=== PATIENT | female | born 1990 | race African-American/Black ===

== ENCOUNTER 2017-06-24 04:07 | Emergency (ER) | payer BC, MEDICAID ==
[~2017-06-24] VITALS: Ht 167.6 cm; Wt 119.0 kg
[2017-06-24] MEDS ORDERED: MORPHINE SULFATE 4 MG/ML CPJ (NOT FOR IM USE) IV STA (06:18)
[2017-06-24] MEDS ORDERED: ONDANSETRON HCL 4MG/2ML VIAL IV STA (06:18)
[2017-06-24] MEDS ORDERED: SODIUM CHLORIDE 0.9% 1,000 ML IV ONE (06:18)
[2017-06-24] MEDS ORDERED: METHYLPREDNISOLONE SOD SUCC 125 MG/2 ML VIAL IV STA (06:23)
[2017-06-24] MEDS ORDERED: ALBUTEROL (0.083%) 2.5MG/3ML NEB HHN STA (06:23)
[2017-06-24 06:35] LABS: BASOPHILS % 0.3 % (0.0-2.0); HEMATOCRIT. 38.3 % (36.0-48.0); HEMOGLOBIN. 12.5 g/dL (12.0-16.0); LYMPHOCYTES % 12.3 % (20.0-50.0); MEAN CORPUSCULAR HEMOGLOBIN 27.3 pg (28.0-32.0); MEAN CORPUSCULAR VOLUME 83.6 fL (81.0-99.0); MONOCYTES % 3.9 % (2.0-8.0); NEUTROPHILS % 82.5 % (40.0-76.0); PLATELET 212 x1000/uL (130-400); RED BLOOD CELL COUNT 4.57 mill/uL (4.2-5.4); RED CELL DISTRIBUTION WIDTH 14.4 % (11.6-14.6)
[2017-06-24 06:42] LABS: CHLORIDE 106 mEq/L (98-107)
[2017-06-24 06:43] LABS: D-DIMER 0.58 mg/L FEU (<0.50); INR 1.1; PROTHROMBIN TIME 11.5 sec (9.4-11.6)
[2017-06-24 06:47] LABS: HCG SCREEN NEGATIVE
[2017-06-24 06:48] LABS: CREATINE KINASE 134 IU/L (26-192); CREATINE KINASE MB FRACTION 0.7 ng/mL (0.5-3.6); TROPONIN I < 0.02 ng/mL (0.00-0.04)
[2017-06-24] MEDS ORDERED: IOHEXOL-350 100 ML BOTTLE ONE (08:44)
[2017-06-24] MEDS ORDERED: SODIUM CHLORIDE 0.9% 10ML VIAL ONE (08:44)
[2017-06-24 11:30] LABS: CLARITY URINE CLEAR (CLEAR); COLOR URINE YELLOW (YELLOW); KETONES URINE NEGATIVE (NEGATIVE); LEUKOCYTE ESTERASE URINE NEGATIVE (NEGATIVE); NITRITE URINE NEGATIVE (NEGATIVE); OCCULT BLOOD URINE NEGATIVE (NEGATIVE); PH URINE 5.5 (4.5-8.0); PROTEIN URINE NEGATIVE (NEGATIVE); SPECIFIC GRAVITY URINE 1.014 (1.005-1.030); UROBILINOGEN URINE 0.2 E.U./dL (0.2-1.0)
[2017-06-24] MEDS ORDERED: PREDNISONE 20MG TABLET PO ONE (11:45)
[2017-06-24 13:05] VITALS: BP 133/72
== END 2017-06-24 13:12 | disposition home or self-care (01) ==
LOC: ER 04:07
DX: J45.901 Unspecified asthma with (acute) exacerbation (principal); G35 Multiple sclerosis; R51 Headache; R07.9 Chest pain, unspecified; Z86.718 Personal history of other venous thrombosis and embolism; Z86.711 Personal history of pulmonary embolism
CPT/HCPCS: 36415; 71045; 71275; 80053; 81003; 82550; 82553; 83605; 83690; 83880; 84484; 84703; 85025; 85379; 85610; 85730; 87040; 87086; 87804; 93005; 93970; 94640; 96361; 96374; 96375; 99285; A4216; J2270; J2405; J2930; J7030; J7512; J7611; Q9967; Z7610

== ENCOUNTER 2017-09-16 00:03 | Emergency (ER) | payer BC, MEDICAID ==
[~2017-09-16] VITALS: Ht 167.6 cm; Wt 148.0 kg
[2017-09-16] MEDS ORDERED: ACETAMINOPHEN WITH CODEINE 300/30MG TABLET PO ONE (02:15)
[2017-09-16 04:49] VITALS: BP 125/67
== END 2017-09-16 04:55 | disposition home or self-care (01) ==
LOC: ER 00:03
DX: M25.562 Pain in left knee (principal); J45.909 Unspecified asthma, uncomplicated; G35 Multiple sclerosis
CPT/HCPCS: 73562; 81025; 93971; 99284

== ENCOUNTER 2018-03-23 15:19 | Emergency (ER) | payer BC, MEDICAID ==
[~2018-03-23] VITALS: Ht 167.6 cm; Wt 123.0 kg
[2018-03-23 15:24] VITALS: BP 117/64
== END 2018-03-24 09:57 | disposition left against medical advice (07) ==
LOC: ER 03-24 08:41
DX: Z53.21 Procedure and treatment not carried out due to patient leaving prior to being seen by health care provider (principal)

== ENCOUNTER 2019-10-13 08:29 | Emergency (ER) | payer BC, MEDICAID ==
[~2019-10-13] VITALS: Ht 167.6 cm; Wt 125.0 kg
[2019-10-13] MEDS ORDERED: GABA-529 PO (08:44)
[2019-10-13] MEDS ORDERED: KETOROLAC 60MG/2ML VIAL IM STA (09:26)
[2019-10-13] MEDS ORDERED: METOCLOPRAMIDE HCL 10MG/2ML VIAL IM STA (09:26)
[2019-10-13 09:52] LABS: CLARITY URINE CLEAR (CLEAR); COLOR URINE YELLOW (YELLOW); KETONES URINE NEGATIVE (NEGATIVE); LEUKOCYTE ESTERASE URINE NEGATIVE (NEGATIVE); NITRITE URINE NEGATIVE (NEGATIVE); OCCULT BLOOD URINE 1+ (NEGATIVE); PROTEIN URINE NEGATIVE (NEGATIVE); SPECIFIC GRAVITY URINE 1.018 (1.005-1.030); UROBILINOGEN URINE 0.2 E.U./dL (0.2-1.0)
[2019-10-13 10:36] LABS: HEMATOCRIT. 41.8 % (36.0-48.0); HEMOGLOBIN. 14.2 g/dL (12.0-16.0); MEAN CORPUSCULAR HEMOGLOBIN 28.9 pg (28.0-32.0); MEAN CORPUSCULAR VOLUME 85.2 fL (81.0-99.0); MEAN PLATELET VOLUME 9.8 fl (7.4-10.4); PLATELET 209 x1000/uL (130-400); RED CELL DISTRIBUTION WIDTH 14.6 % (11.6-14.6)
[2019-10-13 10:39] LABS: CHLORIDE 110 mEq/L (98-107)
[2019-10-13 11:14] LABS: PLATELET ESTIMATE NORMAL
[2019-10-13 13:02] VITALS: BP 101/40
== END 2019-10-13 13:07 | disposition home or self-care (01) ==
LOC: ER 09:24
DX: R51 Headache (principal); R05 Cough; J06.9 Acute upper respiratory infection, unspecified; Z98.890 Other specified postprocedural states
CPT/HCPCS: 36415; 80053; 81003; 81025; 85025; 96372; 99283; J1885; J2765

== ENCOUNTER 2021-01-12 08:32 | Emergency (ER) | payer BC, MEDICAID ==
[~2021-01-12] VITALS: Ht 167.6 cm; Wt 125.0 kg
[~2021-01-12 08:32] MED LIST: GABA-529 PO; IBUP-2029 MT; T3 PO
[2021-01-12] MEDS ORDERED: IBUPROFEN 800MG TABLET PO ONE (09:15)
[2021-01-12 10:04] LABS: CLARITY URINE CLOUDY (CLEAR); COLOR URINE YELLOW (YELLOW); KETONES URINE NEGATIVE (NEGATIVE); LEUKOCYTE ESTERASE URINE 3+ (NEGATIVE); NITRITE URINE NEGATIVE (NEGATIVE); OCCULT BLOOD URINE 2+ (NEGATIVE); PH URINE 5.5 (4.5-8.0); PROTEIN URINE 1+ (NEGATIVE); SPECIFIC GRAVITY URINE 1.013 (1.005-1.030); UROBILINOGEN URINE 0.2 E.U./dL (0.2-1.0)
[2021-01-12] MEDS ORDERED: IBUP-2030 MT (10:26)
[2021-01-12] MEDS ORDERED: AMOX1TAB16 MT (10:26)
[2021-01-12 10:37] VITALS: BP 119/69
== END 2021-01-12 10:39 | disposition home or self-care (01) ==
LOC: ER 08:32
DX: N39.0 Urinary tract infection, site not specified (principal); J45.909 Unspecified asthma, uncomplicated; Z98.890 Other specified postprocedural states
CPT/HCPCS: 81003; 81025; 87077; 87186; 99283

== ENCOUNTER 2022-03-10 10:08 | Emergency (ER) | payer MEDICAID ==
[~2022-03-10] VITALS: Ht 167.6 cm; Wt 123.0 kg
[~2022-03-10 10:08] MED LIST changes: +AMOX1TAB16 MT; +IBUP-2030 MT
[2022-03-10 10:35] VITALS: BP 149/82
[2022-03-10] MEDS ORDERED: HYDROCODONE/ACETAMINOPHEN 5/325MG TABLET PO ONE (11:15)
[2022-03-10] MEDS ORDERED: NAPR-681 MT (13:16)
== END 2022-03-10 13:56 | disposition home or self-care (01) ==
LOC: ER 10:08
DX: M25.572 Pain in left ankle and joints of left foot (principal); J45.909 Unspecified asthma, uncomplicated; Z86.711 Personal history of pulmonary embolism; Z98.890 Other specified postprocedural states; Z79.01 Long term (current) use of anticoagulants; X50.1XXA Overexertion from prolonged static or awkward postures, initial encounter; Y93.89 Activity, other specified; Y92.018 Other place in single-family (private) house as the place of occurrence of the external cause
CPT/HCPCS: 29515; 73610; 99283; Z7610

== ENCOUNTER 2023-01-02 16:09 | Emergency (ER) | payer BC, OTHER ==
[~2023-01-02] VITALS: Ht 167.6 cm; Wt 127.0 kg
[~2023-01-02 16:09] MED LIST changes: +NAPR-681 MT
[2023-01-02 16:18] VITALS: BP 148/92; PULSE 72; RESP 18; TEMP 98.7; O2SAT 100
[2023-01-02] MEDS ORDERED: KETOROLAC 60MG/2ML VIAL IM ONE (19:15)
[2023-01-02 19:37] LABS: BASOPHILS % 0.7 % (0.0-2.0); EOSINOPHILS % 9.1 % (0.0-5.0); HEMATOCRIT. 40.3 % (36.0-48.0); HEMOGLOBIN. 13.1 g/dL (12.0-16.0); LYMPHOCYTES % 37.1 % (20.0-50.0); MEAN CORPUSCULAR HEMOGLOBIN 27.6 pg (28.0-32.0); MEAN CORPUSCULAR HGB CONC 32.6 g/dL (31.0-37.0); MEAN CORPUSCULAR VOLUME 84.8 fL (81.0-99.0); MEAN PLATELET VOLUME 9.8 fl (7.4-10.4); NEUTROPHILS % 44.1 % (40.0-76.0); PLATELET 222 x1000/uL (130-400); RED BLOOD CELL COUNT 4.75 mill/uL (4.2-5.4); RED CELL DISTRIBUTION WIDTH 14.7 % (11.6-14.6); WHITE BLOOD COUNT 5.4 x1000/uL (4.5-11.0)
[2023-01-02 19:43] LABS: CHLORIDE 108 mEq/L (98-107); INDEX HEMOLYSI 1 (1-3); INDEX ICTERIC 1 (1-4); INDEX LIPEMIC 1 (1-3); POTASSIUM 3.5 mEq/L (3.5-5.1); SODIUM 138 mEq/L (136-145)
[2023-01-02 19:48] LABS: CLARITY URINE CLEAR (CLEAR); COLOR URINE YELLOW (YELLOW); GLUCOSE URINE NEGATIVE (NEGATIVE); KETONES URINE NEGATIVE (NEGATIVE); LEUKOCYTE ESTERASE URINE NEGATIVE (NEGATIVE); NITRITE URINE NEGATIVE (NEGATIVE); OCCULT BLOOD URINE NEGATIVE (NEGATIVE); PROTEIN URINE NEGATIVE (NEGATIVE); SPECIFIC GRAVITY URINE 1.011 (1.005-1.030); UROBILINOGEN URINE 0.2 E.U./dL (0.2-1.0)
[2023-01-02 19:52] LABS: ALANINE AMINOTRANSFERASE 9 IU/L (13-61); ALBUMIN 3.7 g/dL (3.4-5.0); ASPARTATE AMINOTRANSFERASE 13 IU/L (15-37); BILIRUBIN TOTAL 0.4 mg/dL (0.1-1.0); CALCIUM 8.1 mg/dL (8.5-10.1); CARBON DIOXIDE 25 mEq/L (21-32); CREATININE 0.8 mg/dL (0.6-1.3); GLUCOSE 111 mg/dL (70-105); PROTEIN TOTAL 7.7 g/dL (6.0-8.3); UREA NITROGEN BLOOD 9 mg/dL (7-21)
[2023-01-02] MEDS ORDERED: IBUP-2028 MT (20:40)
== END 2023-01-02 21:00 | disposition home or self-care (01) ==
LOC: ER 16:09
DX: R51.9 Headache, unspecified (principal); R19.7 Diarrhea, unspecified; J45.909 Unspecified asthma, uncomplicated; Z98.890 Other specified postprocedural states; Z79.899 Other long term (current) drug therapy
CPT/HCPCS: 36415; 80053; 81003; 81025; 85025; 99283

== ENCOUNTER 2023-10-31 02:30 | Emergency (ER) | payer BC, MEDICAID ==
[~2023-10-31] VITALS: Ht 167.6 cm; Wt 122.0 kg
[~2023-10-31 02:30] MED LIST changes: +IBUP-2028 MT
[2023-10-31 02:43] VITALS: BP 119/81; PULSE 94; RESP 18; O2SAT 98
[2023-10-31 04:12] VITALS: TEMP 98.8
[2023-10-31] MEDS: ACETAMINOPHEN 325MG TABLET PO ONE (04:12)
[2023-10-31] MEDS ORDERED: ACET-2708 MT (04:44)
== END 2023-10-31 05:04 | disposition home or self-care (01) ==
LOC: ER 02:30
DX: S93.401A Sprain of unspecified ligament of right ankle, initial encounter (principal); J45.909 Unspecified asthma, uncomplicated; Z79.899 Other long term (current) drug therapy; Z98.890 Other specified postprocedural states; W50.2XXA Accidental twist by another person, initial encounter; Y93.89 Activity, other specified; Y92.89 Other specified places as the place of occurrence of the external cause; Y99.8 Other external cause status
CPT/HCPCS: 73610; 81025; 99283